=== PATIENT | male | born 1960 | race Caucasian/White ===

== ENCOUNTER 2017-10-04 06:41 | Emergency (ER) | payer OTHER ==
[2017-10-04 07:13] LABS: Lavender RECEIVED; Red RECEIVED
[2017-10-04 07:14] LABS: #Eosinphils 0.3 thou/uL (0.0-0.7); #Lymphocytes 2.1 thou/uL (1.20-3.40); #Monocytes 1.1 thou/uL (0.11-0.59); #Neutrophils 10.1 thou/uL (1.40-6.50); %Basophils 0.3 % (0.0-1.0); %Eosinophils 2.3 % (0.0-10.0); %Lymphocytes 15.2 % (21.0-51.0); %Monocytes 7.8 % (0.0-10.0); %Neutrophils 74.3 % (42.0-75.0); Hemoglobin 14.9 g/dL (14.0-18.0); Mean Corpuscular Hemoglobin 36.2 pg (27.0-31.0); Mean Platelet Volume 6.9 fL (7.4-10.4); Platelet Count 312 thou/uL (130-400); RBC Distribution Width 11.7 % (11.5-14.5); Red Blood Cell (RBC) Count 4.12 mill/uL (4.70-6.10); White Blood Cell (WBC) Count 13.7 thou/uL (4.8-10.8)
[2017-10-04 07:32] LABS: Acetaminophen Less than 6.0 mcg/mL (10.0-30.0); Alcohol Less than 10 mg/dL (Less than 10); Salicylate Less than 8.0 mg/dL (15.0-30.0)
[2017-10-04 07:34] LABS: ALT (SGPT) 16 U/L (8-55); AST (SGOT) 14 U/L (5-34); Albumin 4.1 g/dL (3.5-5.0); Alkaline Phosphatase 79 U/L (40-150); Anion Gap 11 mmol/L (10-20); BUN (Urea Nitrogen) 16 mg/dL (8.4-25.7); Bilirubin, Total 0.3 mg/dL (0.2-1.2); Calc. Creatinine Clearance 0 mL/min (70-130); Calcium 9.6 mg/dL (7.8-10.44); Carbon Dioxide 26 mmol/L (22-29); Chloride 106 mmol/L (98-107); Estimated GFR-MDRD Greater than 90; Globulin 2.4 g/dL (2.4-3.5); Glucose 110 mg/dL (70-105); Protein, Total 6.5 g/dL (6.0-8.3); Sodium 139 mmol/L (136-145)
[2017-10-04 07:36] LABS: CKMB 1.9 ng/mL (0-6.6); Troponin I Less than 0.010 ng/mL (< 0.028)
--- NOTE | 2017-12-03 16:12 | EKG ---
Test Reason : Blood Pressure : / mmHG Vent. Rate : 072 BPM Atrial Rate : 072 BPM P-R Int : 182 ms QRS Dur : 102 ms QT Int : 376 ms P-R-T Axes : 071 -51 036 degrees QTc Int : 411 ms Normal sinus rhythm with sinus arrhythmia Pulmonary disease pattern Left anterior fascicular block Abnormal ECG Confirmed by TORREY MOSHER, STANLEY ([id number]), web editor JONATHAN GUTIERREZ ([id number]) on 12/03/2017 4:11:28 PM Referred By: Confirmed By:STANLEY HIRSCH MD
== END 2017-10-04 08:04 | disposition home or self-care (01) ==
LOC: ERS 06:41
DX: G40.409 Other generalized epilepsy and epileptic syndromes, not intractable, without status epilepticus (principal); E78.5 Hyperlipidemia, unspecified; F17.210 Nicotine dependence, cigarettes, uncomplicated; Z79.899 Other long term (current) drug therapy
CPT/HCPCS: 36415; 80053; 80307; 82553; 84484; 85025; 93005

== ENCOUNTER 2018-06-17 07:43 | Emergency (ER) | payer OTHER ==
[2018-06-17 08:13] LABS: #Basophils 0.1 thou/uL (0.0-0.2); #Eosinphils 0.3 thou/uL (0.0-0.7); #Lymphocytes 1.5 thou/uL (1.20-3.40); #Monocytes 0.7 thou/uL (0.11-0.59); #Neutrophils 6.9 thou/uL (1.40-6.50); %Basophils 0.6 % (0.0-1.0); %Eosinophils 3.7 % (0.0-10.0); %Lymphocytes 15.4 % (21.0-51.0); %Monocytes 6.9 % (0.0-10.0); %Neutrophils 73.4 % (42.0-75.0); Hemoglobin 14.5 g/dL (14.0-18.0); Mean Corpuscular HGB CONC 33.2 g/dL (32.0-36.0); Mean Corpuscular Hemoglobin 33.8 pg (27.0-31.0); Mean Platelet Volume 7.2 fL (7.4-10.4); Platelet Count 318 thou/uL (130-400); RBC Distribution Width 11.9 % (11.5-14.5); Red Blood Cell (RBC) Count 4.29 mill/uL (4.70-6.10); White Blood Cell (WBC) Count 9.5 thou/uL (4.8-10.8)
--- NOTE | 2018-06-17 08:17 | CT ---
NONCONTRAST CT HEAD: DATE: 06/17/2018. HISTORY: Altered mental status. The patient presents with a seizure episode this morning. Tonic-clonic grand mal seizure lasting 7-8 minutes. COMPARISON: 06/19/2016. FINDINGS: There is a stable area of encephalomalacia present within the inferior aspect of the right anterior f rontal lobe. There is no evidence of an acute cortical infarction, hemorrhage, mass effect, or midli ne shift. Mild cerebral and cerebellar volume loss is present similar to the prior exam. Ventricula r system is normal in size, shape, and position for the degree of sulcal atrophy. Visualized paranas al sinuses and mastoid air cells are clear. Calvarial structures are intact. The large mucous reten tion cyst right maxillary antrum on the prior study was not imaged on today's exam. IMPRESSION: 1. No acute intracranial abnormality is demonstrated. 2. Stable encephalomalacia anterior inferior right frontal lobe. 3. Mild cerebral and cerebellar volume loss. POS: DORIAN
[2018-06-17 08:32] LABS: ALT (SGPT) 24 U/L (8-55); AST (SGOT) 23 U/L (5-34); Alkaline Phosphatase 86 U/L (40-150); Anion Gap 11 mmol/L (10-20); BUN (Urea Nitrogen) 18 mg/dL (8.4-25.7); Bilirubin, Total 0.9 mg/dL (0.2-1.2); Calc. Creatinine Clearance 0 mL/min (70-130); Calcium 9.1 mg/dL (7.8-10.44); Carbon Dioxide 27 mmol/L (22-29); Chloride 103 mmol/L (98-107); Estimated GFR-MDRD 83; Globulin 2.5 g/dL (2.4-3.5); Glucose 123 mg/dL (70-105); Potassium 4.4 mmol/L (3.5-5.1); Protein, Total 6.5 g/dL (6.0-8.3); Sodium 137 mmol/L (136-145)
[2018-06-17 09:27] LABS: Bilirubin Negative (Negative); Blood, Urine Small (Negative); Clarity CLEAR (Clear); Glucose, Urine (Dipstick) Negative (Negative); Leukocyte Negative (Negative); Nitrite Negative (Negative); Protein, Urine (Dipstick) 100 mg/dL (Neg-Trace); Specific Gravity, Urine 1.018 (1.002-1.036); Urobilinogen 0.2 mg/dL (0.2-1.0); pH, Urine 5.5 (5.0-9.0)
[2018-06-17 09:29] LABS: Bacteria/HPF None Seen HPF (None Seen); Hyaline Casts/LPF 4-6 HYALINE CAST LPF (0-3 Hyaline); Pathc Cast-AUWi Flag 0.29 (0-2.49); Squamous Epithelial 0-3 HPF (0-3); WBC/HPF 0-3 HPF (0-3)
== END 2018-06-17 09:23 | disposition home or self-care (01) ==
LOC: ERS 07:43
DX: G40.909 Epilepsy, unspecified, not intractable, without status epilepticus (principal); E78.5 Hyperlipidemia, unspecified; F17.210 Nicotine dependence, cigarettes, uncomplicated; Z79.899 Other long term (current) drug therapy
CPT/HCPCS: 36415; 70450; 80053; 81003; 81015; 85025

== ENCOUNTER 2018-06-17 10:17 | Observation (INO) | payer OTHER ==
[2018-06-17 08:04] LABS: Lavender RECEIVED; Red RECEIVED
[2018-06-17] MEDS ORDERED: Lorazepam 2 MG/ML VIAL ONE (10:40)
[2018-06-17] MEDS ORDERED: Lacosamide 50 mg Tablet PO SCH ×2 (10:45→21:00)
[2018-06-17] MEDS ORDERED: levETIRAcetam In NaCl (Iso-Os) 1,000 MG in Premix Bag 1 BAG IVPB ONE (14:30)
[2018-06-17 16:07] VITALS: BMI 28.0
[2018-06-17] MEDS ORDERED: Lorazepam 2 MG/ML VIAL SLOW IVP PRN (16:21)
[2018-06-17] MEDS ORDERED: Sodium Chloride 0.9% 1,000 ML IV SCH (16:21)
[2018-06-17] MEDS ORDERED: Ondansetron ODT 4 MG TAB SL PRN (16:21)
[2018-06-17] MEDS ORDERED: Ondansetron PF 4 MG/2 ML Vial IVP PRN (16:21)
[2018-06-17] MEDS ORDERED: Acetaminophen 325 MG TAB PO PRN (17:16)
--- NOTE | 2018-06-17 17:58 | HP ---
CHIEF COMPLAINT: Breakthrough seizures. HISTORY OF PRESENT ILLNESS: Mr. Devries is a very pleasant 58-year-old man who presented to the ED initially this morning after having a breakthrough seizure. He has a known history of seizure disorders. The patient states his first seizure was early hours this morning. He went with his to walk their dog. They went back to bed and 30 min after falling asleep had a seizure lasting less than 10 minutes. He vomited x 1 and had loss of bladder control. No loss of bowel control. This was his first seizure since October 2017. He is on Vimpat 150 mg b.i.d. and reports being compliant with medications. Denies any changes in his medication, except for coming off of Prozac approximately 2 months ago. His states his mood improved quickly as did his energy. He underwent investigations including laboratory studies, which were unremarkable. He had a CT of the brain showing no acute intracranial abnormality. Stable encephalomalacia in the anterior inferior right frontal lobe was noted. Mild cerebral and cerebellar volume loss present. The patient's case had been discussed with Neuro and he was deemed safe for discharge home as he had no further seizure episodes since arriving to the ED. He was given a prescription to for Keppra and Vimpat was increased to 200 mg PO BID. They were on their way to the pharmacy when they stopped to have breakfast and he experienced another seizure, lasting 5 min with no subsequent injuries. He came immediately back to the ED. It was reviewed again and due to concerns by his taking him home, he is being admitted for observation. REVIEW OF SYSTEMS: At this time, he feels drained and has no recollection of events. Denies having any headaches or dizziness. Denies having any preceding chest pain or shortness of breath. Denies having any warning signs or symptoms prior to the seizures. Denies having any issues with his appetite. No nausea. He did experience vomiting and loss of bladder control with the first seizure today, but prior to that had absolutely no complaints of nausea or vomiting. His bowel movements have been normal. He denies having any urinary complaints. He has been compliant with his medications and denies starting any new medications. He has not been unwell with any fevers, chills, or sweats. Denies any alcohol use. No drug use. All other review of systems are negative. The patient denies any vision disturbances. Denies any speech changes. PAST MEDICAL HISTORY: 1. Traumatic brain injury 1976. 2. History of hyperlipidemia. 3. Seizure disorder. PAST SURGICAL HISTORY: Appendectomy. SOCIAL HISTORY: The patient smokes 5 to 6 cigarettes a day. He drinks socially , but has not had any alcohol as of recently. No drug use. He lives with his . ALLERGIES: NO KNOWN DRUG ALLERGIES. CURRENT MEDICATIONS: 1. Fluoxetine 20 mg once daily- DISCONTINUED 2 months ago. 2. Vimpat 150 mg b.i.d. 3. Atorvastatin 40 mg once daily. PHYSICAL EXAMINATION: VITAL SIGNS: Temperature 98.6, heart rate 76, respirations 12, O2 saturation 97 % on room air, and blood pressure 114/63. HEENT: Normocephalic and atraumatic. Pupils are equal, round, reactive to light. Sclerae without icterus. Oropharynx is clear. NECK: Supple without lymphadenopathy. LUNGS: Clear to auscultation bilaterally without any wheezes, rales, or rhonchi. CARDIAC: Regular rate and rhythm without audible murmurs, rubs, or gallops. ABDOMEN: Soft, nontender, nondistended. Normoactive bowel sounds present. EXTREMITIES: No clubbing, cyanosis, or edema. NEUROLOGIC: Alert and oriented x3. Power 5/5 in all limbs. Normal sensation. Normal speech. No vision disturbances. SKIN: Without rash or jaundice. IMPRESSION AND PLAN: 1. Seizure disorder with breakthrough seizures. The patient has been given a loading dose of Keppra in the ED. Vimpat has been increased to 200 mg p.o. b.i.d. as per neuro recommendations. We will continue to monitor. If further seizure episode, consider Neurology consult. 2. Diet. Heart healthy diet. 3. Gastrointestinal prophylaxis. 4. Venous thromboembolism prophylaxis. 5. Continue home medications. The patient is seen by Dr. Lal, who agrees with the plan of care as described above. Job ID: [id number] [facility]
[2018-06-17 18:34] LABS: Bilirubin Negative (Negative); Blood, Urine Negative (Negative); Clarity CLEAR (Clear); Glucose, Urine (Dipstick) Negative (Negative); Leukocyte Negative (Negative); Nitrite Negative (Negative); Protein, Urine (Dipstick) Negative (Neg-Trace); Specific Gravity, Urine 1.013 (1.002-1.036); pH, Urine 7.5 (5.0-9.0)
[2018-06-17 18:36] LABS: Bacteria/HPF None Seen HPF (None Seen); Hyaline Casts/LPF 0-3 HYALINE CAST LPF (0-3 Hyaline); Squamous Epithelial None Seen HPF (0-3); WBC/HPF None Seen HPF (0-3)
[2018-06-17 18:48] LABS: Amphetamine Not Detected (NotDetected); Barbiturates Screen Not Detected (NotDetected); Benzodiazepine Screen Detected (NotDetected); Cocaine Metabolite Screen Not Detected (NotDetected); Medtox Control Line Valid? VALID (VALID); Medtox Reader # READER 1; Methadone Not Detected (NotDetected); Methamphetamine Not Detected (NotDetected); Opiate Screen Not Detected (NotDetected); Oxycodone Screen Not Detected (NotDetected); Phencyclidine (PCP) Not Detected (NotDetected); THC/Cannabinoid Screen Detected (NotDetected); Tricyclic Screen Not Detected (NotDetected)
[2018-06-17 18:56] LABS: ALT (SGPT) 25 U/L (8-55); AST (SGOT) 24 U/L (5-34); Alkaline Phosphatase 83 U/L (40-150); Bilirubin, Direct 0.3 mg/dL (0.1-0.3); Bilirubin, Total 0.9 mg/dL (0.2-1.2); Calcium 9.2 mg/dL (7.8-10.44); Magnesium 2.3 mg/dL (1.6-2.6); Protein, Total 6.5 g/dL (6.0-8.3)
[2018-06-17] MEDS: Famotidine 20 MG TAB PO SCH (20:59)
[2018-06-17] MEDS ORDERED: Donepezil HCl 5 MG TAB PO SCH (21:00)
[2018-06-17] MEDS ORDERED: levETIRAcetam 500 MG TAB PO SCH (21:00)
[2018-06-17] MEDS ORDERED: Atorvastatin Calcium 40 MG TAB PO SCH (21:00)
[2018-06-18 05:12] LABS: #Basophils 0.1 thou/uL (0.0-0.2); #Eosinphils 0.3 thou/uL (0.0-0.7); #Lymphocytes 3.1 thou/uL (1.20-3.40); #Monocytes 1.2 thou/uL (0.11-0.59); #Neutrophils 5.8 thou/uL (1.40-6.50); %Basophils 0.9 % (0.0-1.0); %Lymphocytes 29.2 % (21.0-51.0); %Monocytes 11.3 % (0.0-10.0); %Neutrophils 55.7 % (42.0-75.0); Mean Corpuscular HGB CONC 33.6 g/dL (32.0-36.0); Mean Corpuscular Hemoglobin 34.2 pg (27.0-31.0); Mean Platelet Volume 7.4 fL (7.4-10.4); Platelet Count 289 thou/uL (130-400); RBC Distribution Width 11.9 % (11.5-14.5); Red Blood Cell (RBC) Count 3.81 mill/uL (4.70-6.10); White Blood Cell (WBC) Count 10.4 thou/uL (4.8-10.8)
[2018-06-18 05:29] LABS: ALT (SGPT) 21 U/L (8-55); AST (SGOT) 17 U/L (5-34); Albumin 3.5 g/dL (3.5-5.0); Alkaline Phosphatase 71 U/L (40-150); Anion Gap 10 mmol/L (10-20); BUN (Urea Nitrogen) 14 mg/dL (8.4-25.7); Bilirubin, Total 1.1 mg/dL (0.2-1.2); Calc. Creatinine Clearance 119 mL/min (70-130); Calcium 8.6 mg/dL (7.8-10.44); Carbon Dioxide 25 mmol/L (22-29); Chloride 108 mmol/L (98-107); Estimated GFR-MDRD Greater than 90; Globulin 2.2 g/dL (2.4-3.5); Glucose 98 mg/dL (70-105); Potassium 3.8 mmol/L (3.5-5.1); Protein, Total 5.7 g/dL (6.0-8.3); Sodium 139 mmol/L (136-145)
[2018-06-18] MEDS ORDERED: Lorazepam 2 MG/ML VIAL SLOW IVP PRN (07:19)
[2018-06-18 07:41] VITALS: BP 125/76; TEMP 99.2
[2018-06-18] MEDS: Famotidine 20 MG TAB PO SCH (08:03)
[2018-06-18] MEDS ORDERED: Lacosamide 50 mg Tablet PO SCH (09:00)
[2018-06-18] MEDS ORDERED: Folic Acid 1 MG TAB PO SCH (09:00)
[2018-06-18] MEDS ORDERED: levETIRAcetam 500 MG TAB PO SCH (09:00)
--- NOTE | 2018-06-19 12:22 | DIS ---
DATE OF ADMISSION: 06/17/2018 DATE OF DISCHARGE: 06/18/2018 DISCHARGE DIAGNOSIS: Breakthrough seizures. CONSULTING PHYSICIANS: None. HOSPITAL COURSE: Mr. Juan is a very pleasant 58-year-old man, who was admitted from the ED after re-presenting with a second breakthrough seizure. He had experienced his first seizure yesterday at 6:00 a.m. while asleep, lasting less than 10 minutes and witnessed by his , who reported loss of bladder control as well as one episode of vomiting once he came to. She brought him to the ED, where he underwent a CT head, which was unremarkable for any acute changes. The patient underwent also unremarkable. This case was discussed with Neuro, who advised increasing his Vimpat to 200 mg b.i.d. and to resume Keppra. The patient had been on Keppra previously, but was taken off it as it had been sometime since his last seizure. His last seizure was in October 2017. He reports having no new medications or any recent illnesses. Of note, the states he did discontinue Prozac 2 months ago and had notable improvement with his mood and energy. The patient was discharged to home. However, shortly after when they stopped to have breakfast at [employer], he experienced another seizure lasting 5 minutes. He had no subsequent injuries. He came back to the ED immediately after. The patient was cleared for discharge home after a loading dose of Keppra. The , however, did not feel comfortable taking him home, therefore, he was admitted for further observation. The patient did very well overnight and has had no further seizure-like activity since being admitted. He has no recollection of having seizure or of being in the ED yesterday. The patient states he often does experience retrograde amnesia after his seizures. He reports feeling himself. Denies having any headaches or dizziness. He has been eating and drinking without any difficulties. Denies having any nausea or vomiting. No urinary symptoms. He has been afebrile without any cough. No chest pain, palpitations, or shortness of breath. All other review of systems are negative. The patient has been deemed stable for discharge home with plans to follow up with his neurologist at the [facility], which is scheduled for June 27, 2018. REVIEW OF SYSTEMS: All other review of systems apart from those mentioned above in the HPI are negative. PHYSICAL EXAMINATION: GENERAL: The patient appears well developed, well nourished, in no acute distress. SKIN: Normal warm and dry. VITAL SIGNS: Temperature 99.2, pulse 61, respirations 16, O2 saturation 94% on room air, and blood pressure 125/76. HEENT: Normocephalic and atraumatic. Pupils are equal, round, and reactive to light. Sclerae are without icterus. Oropharynx is clear. NECK: Supple without lymphadenopathy. LUNGS: Clear to auscultation bilaterally. CARDIAC: Regular rhythm. ABDOMEN: Soft, nontender, and nondistended. Normoactive bowel sounds present. EXTREMITIES: No clubbing, cyanosis, or edema. NEUROLOGIC: Alert and oriented x3. Power 5/5 in all limbs. Sensation normal. Speech normal. Facial movements also normal. No vision disturbances. LABORATORY DATA: White blood count 10.4, hemoglobin 13, hematocrit 38.7, and platelets 289. Sodium 139, potassium 3.8, BUN 14, creatinine 0.83, GFR greater than 90, calcium 8.6, magnesium 2.3. LFTs unremarkable. Urinalysis unremarkable. Urine tox screen positive for benzodiazepines and cannabinoids. IMAGING STUDIES: CT brain done on 06/17/2018. No acute intracranial abnormality demonstrated. Stable encephalomalacia in anterior inferior right frontal lobe. Mild cerebral and cerebellar volume loss. DISCHARGE MEDICATIONS: 1. Prescription provided for Keppra 500 mg p.o. b.i.d. as per Neuro. 2. Vimpat increased from 150 mg p.o. b.i.d. to 200 mg p.o. b.i.d., as per Neuro. Prescription provided yesterday by ED physician, which the states she does have and will fill. 3. Prescription provided yesterday by ED physician for Diastat mg per rectum p.r.n. for seizures. will have the prescription filled. 4. The patient will otherwise resume all other home medications. CONDITION AT DISCHARGE: Stable. ACTIVITY: As tolerated. The patient is aware of driving restrictions and has not driven for quite sometime. DIET: Heart healthy diet. FOLLOWUP: The patient will follow up with his neurologist on June 27, 2018 as scheduled. DISPOSITION: The patient cleared for discharge home today on 06/18/2018. Job ID: [id number]
== END 2018-06-18 10:24 | disposition home or self-care (01) ==
LOC: ERS 10:17 → 2SE 15:48
PROVIDERS: ADMIT Internal Medicine; ATTEND Internal Medicine
DX: G40.909 Epilepsy, unspecified, not intractable, without status epilepticus (principal); E78.5 Hyperlipidemia, unspecified; F17.210 Nicotine dependence, cigarettes, uncomplicated; Z90.49 Acquired absence of other specified parts of digestive tract; Z87.820 Personal history of traumatic brain injury; Z79.899 Other long term (current) drug therapy
CPT/HCPCS: 36415; 70450; 80053; 80306; 81003; 81015; 83735; 85025; 90471; 90732; 96360; 96361; 96365; 96375; G0009; G0378; J1953; J2060

== ENCOUNTER 2019-03-16 20:26 | Emergency (ER) | payer OTHER ==
[2019-03-16] MEDS ORDERED: HYDROcodone/Acetaminophen 10/325 mg Tablet ONE (20:57)
[2019-03-16 21:46] LABS: #Basophils 0.1 thou/uL (0.0-0.2); #Eosinphils 0.5 thou/uL (0.0-0.7); #Lymphocytes 3.7 thou/uL (1.20-3.40); #Monocytes 1.2 thou/uL (0.11-0.59); #Neutrophils 6.8 thou/uL (1.40-6.50); %Basophils 0.7 % (0.0-1.0); %Eosinophils 4.2 % (0.0-10.0); %Lymphocytes 30.4 % (21.0-51.0); %Monocytes 9.6 % (0.0-10.0); %Neutrophils 55.2 % (42.0-75.0); Mean Corpuscular HGB CONC 34.2 g/dL (32.0-36.0); Mean Corpuscular Volume 99.2 fL (78.0-98.0); Mean Platelet Volume 6.9 fL (7.4-10.4); Platelet Count 284 thou/uL (130-400); RBC Distribution Width 11.4 % (11.5-14.5); Red Blood Cell (RBC) Count 3.53 mill/uL (4.70-6.10); White Blood Cell (WBC) Count 12.3 thou/uL (4.8-10.8)
[2019-03-16 22:07] LABS: ALT (SGPT) 14 U/L (8-55); AST (SGOT) 14 U/L (5-34); Albumin 3.8 g/dL (3.4-4.8); Alkaline Phosphatase 85 U/L (40-110); Anion Gap 10 mmol/L (10-20); BUN (Urea Nitrogen) 24 mg/dL (8.4-25.7); Bilirubin, Total 0.3 mg/dL (0.2-1.2); Calc. Creatinine Clearance 0 mL/min (70-130); Calcium 9.4 mg/dL (7.8-10.44); Carbon Dioxide 28 mmol/L (23-31); Chloride 103 mmol/L (98-107); Estimated GFR-MDRD Greater than 90; Globulin 2.4 g/dL (2.4-3.5); Glucose 109 mg/dL (80-115); Potassium 3.7 mmol/L (3.5-5.1); Protein, Total 6.2 g/dL (5.8-8.1); Sodium 137 mmol/L (136-145)
--- NOTE | 2019-03-16 22:34 | CT ---
CT Facial Bones W Con HISTORY: Right cheek swelling onset today. History recent temporary crown placement. COMPARISON: CT of brain performed 06/17/2018. FINDINGS: The visualized brain parenchyma shows atrophy. Orbits are unremarkable. The right maxillary sinus is now completely opacified and there is some right-sided ethmoid air cell mucosal disease. Directly anterior to the right maxillary sinus along the anterior wall there is a small fluid density collection I do not see any underlying definitive dental disease in this area. The changes could be secondary to the sinus disease. The parotid and submandibular glands are unremarkable. IMPRESSION: Development of complete opacification the right maxillary sinus also with mild right-side d anterior ethmoid air cell mucosal disease. A small low-attenuation collection adjacent to the anterior wall of the right maxillary sinus is seen, I do not see obvious dental disease in this regio n, these changes could be secondary to the sinus disease.
[2019-03-16] MEDS ORDERED: Amoxicillin/Potassium Clav 875 MG TAB ONE (22:45)
== END 2019-03-16 22:55 | disposition home or self-care (01) ==
LOC: ERS 20:26
DX: J32.9 Chronic sinusitis, unspecified (principal); K08.89 Other specified disorders of teeth and supporting structures; E78.5 Hyperlipidemia, unspecified; E78.00 Pure hypercholesterolemia, unspecified; F17.210 Nicotine dependence, cigarettes, uncomplicated; Z79.899 Other long term (current) drug therapy; Z71.6 Tobacco abuse counseling
CPT/HCPCS: 36415; 70487; 80053; 85025; 99406

== ENCOUNTER 2020-10-13 13:08 | Emergency (ER) | payer OTHER ==
[2020-10-13] MEDS ORDERED: levETIRAcetam in NS 200 ML ONE (13:28)
[2020-10-13 13:43] LABS: #Eosinphils 0.1 thou/uL (0.0-0.7); #Lymphocytes 1.5 thou/uL (1.20-3.40); #Monocytes 0.6 thou/uL (0.11-0.59); #Neutrophils 7.1 thou/uL (1.40-6.50); %Basophils 0.5 % (0.0-1.0); %Eosinophils 1.6 % (0.0-10.0); %Lymphocytes 16.2 % (21.0-51.0); %Monocytes 6.8 % (0.0-10.0); Hemoglobin 13.9 g/dL (14.0-18.0); Mean Corpuscular HGB CONC 31.7 g/dL (32.0-36.0); Mean Corpuscular Hemoglobin 32.4 pg (27.0-31.0); Mean Platelet Volume 7.7 fL (7.4-10.4); Platelet Count 298 thou/uL (130-400); RBC Distribution Width 11.7 % (11.5-14.5); Red Blood Cell (RBC) Count 4.29 mill/uL (4.70-6.10); White Blood Cell (WBC) Count 9.4 thou/uL (4.8-10.8)
[2020-10-13 14:00] LABS: ALT (SGPT) 17 U/L (8-55); AST (SGOT) 19 U/L (5-34); Albumin 4.4 g/dL (3.4-4.8); Alkaline Phosphatase 81 U/L (40-110); Anion Gap 20 mmol/L (10-20); BUN (Urea Nitrogen) 15 mg/dL (8.4-25.7); Bilirubin, Total 0.5 mg/dL (0.2-1.2); CK (CPK) 223 U/L (30-200); Calc. Creatinine Clearance 0 mL/min (70-130); Calcium 9.5 mg/dL (7.8-10.44); Carbon Dioxide 20 mmol/L (23-31); Chloride 106 mmol/L (98-107); Globulin 2.8 g/dL (2.4-3.5); Glucose 166 mg/dL (80-115); Protein, Total 7.2 g/dL (5.8-8.1); Sodium 142 mmol/L (136-145)
[2020-10-13 20:15] LABS: SARS-CoV-2 NAA Rapid Test Not Detected (NotDetected)
[2020-10-13] MEDS ORDERED: Fosphenytoin Sodium 500 mg/10 ml Vial ONE (23:03)
== END 2020-10-13 23:20 | disposition short-term general hospital (02) ==
LOC: ERS 13:08
DX: R56.9 Unspecified convulsions (principal); E78.5 Hyperlipidemia, unspecified; F17.210 Nicotine dependence, cigarettes, uncomplicated; Z79.899 Other long term (current) drug therapy
CPT/HCPCS: 36415; 70450; 71045; 80053; 80177; 82550; 84484; 85025; 93005; 96365; 96375; J1953; Q2009; U0002

== ENCOUNTER 2022-06-08 09:38 | Emergency (ER) | payer OTHER ==
[2022-06-08] MEDS ORDERED: levETIRAcetam 500 MG/5 ML VIAL ONE ×2 (10:03→11:31)
[2022-06-08 10:31] LABS: #Eosinphils 0.3 thou/uL (0.0-0.7); #Lymphocytes 1.5 thou/uL (1.20-3.40); #Monocytes 1.1 thou/uL (0.11-0.59); #Neutrophils 11.9 thou/uL (1.40-6.50); %Basophils 0.3 % (0.0-1.0); %Lymphocytes 10.3 % (21.0-51.0); %Monocytes 7.1 % (0.0-10.0); %Neutrophils 80.3 % (42.0-75.0); Hemoglobin 14.7 g/dL (14.0-18.0); Mean Corpuscular HGB CONC 32.6 g/dL (32.0-36.0); Mean Corpuscular Hemoglobin 33.9 pg (27.0-31.0); Mean Platelet Volume 7.2 fL (7.4-10.4); Platelet Count 308 10x3/uL (130-400); RBC Distribution Width 11.4 % (11.5-14.5); Red Blood Cell (RBC) Count 4.34 mill/uL (4.70-6.10); White Blood Cell (WBC) Count 14.8 10x3/uL (4.8-10.8)
[2022-06-08 10:59] LABS: ALT (SGPT) 21 U/L (8-55); AST (SGOT) 17 U/L (5-34); Alkaline Phosphatase 94 U/L (40-110); Anion Gap 11 mmol/L (10-20); BUN (Urea Nitrogen) 9 mg/dL (8.4-25.7); Bilirubin, Total 0.4 mg/dL (0.2-1.2); Calc. Creatinine Clearance 0 mL/min (70-130); Calcium 8.6 mg/dL (7.8-10.44); Carbon Dioxide 26 mmol/L (23-31); Chloride 103 mmol/L (98-107); Estimated GFR 100; Globulin 2.5 g/dL (2.4-3.5); Glucose 116 mg/dL (80-115); Potassium 4.3 mmol/L (3.5-5.1); Protein, Total 6.5 g/dL (5.8-8.1); Sodium 136 mmol/L (136-145)
== END 2022-06-08 12:08 | disposition home or self-care (01) ==
LOC: ERS 09:38
DX: R56.9 Unspecified convulsions (principal); E78.00 Pure hypercholesterolemia, unspecified; F17.210 Nicotine dependence, cigarettes, uncomplicated
CPT/HCPCS: 36415; 80053; 80164; 80177; 84146; 85025; J1953

== ENCOUNTER 2022-06-08 15:41 | Inpatient (IN) | payer OTHER ==
[2022-06-08] MEDS ORDERED: Iopamidol-370 76% 500 ML 1 ML ONE (16:09)
[2022-06-08 16:31] LABS: #Eosinphils 0.1 thou/uL (0.0-0.7); #Neutrophils 12.8 thou/uL (1.40-6.50); %Eosinophils 0.5 % (0.0-10.0); Mean Corpuscular HGB CONC 33.5 g/dL (32.0-36.0); RBC Distribution Width 11.3 % (11.5-14.5)
[2022-06-08 16:42] LABS: #Lymphocytes 1.4 thou/uL (1.20-3.40); #Monocytes 0.6 thou/uL (0.11-0.59); %Lymphocytes 9.3 % (21.0-51.0); %Neutrophils 86.1 % (42.0-75.0); Hemoglobin 13.9 g/dL (14.0-18.0); Mean Corpuscular Hemoglobin 34.1 pg (27.0-31.0); Mean Platelet Volume 7.5 fL (7.4-10.4); Platelet Count 289 10x3/uL (130-400); Red Blood Cell (RBC) Count 4.07 mill/uL (4.70-6.10); White Blood Cell (WBC) Count 14.9 10x3/uL (4.8-10.8)
[2022-06-08 16:48] LABS: PTT 32.3 sec (22.9-36.1); Prothrombin Time 13.4 sec (12.0-14.7)
[2022-06-08 17:00] LABS: ALT (SGPT) 18 U/L (8-55); AST (SGOT) 15 U/L (5-34); Albumin 3.8 g/dL (3.4-4.8); Alkaline Phosphatase 93 U/L (40-110); Anion Gap 9 mmol/L (10-20); BUN (Urea Nitrogen) 11 mg/dL (8.4-25.7); Bilirubin, Total 0.6 mg/dL (0.2-1.2); Calc. Creatinine Clearance 0 mL/min (70-130); Calcium 8.8 mg/dL (7.8-10.44); Carbon Dioxide 25 mmol/L (23-31); Chloride 104 mmol/L (98-107); Estimated GFR 102; Globulin 2.3 g/dL (2.4-3.5); Glucose 129 mg/dL (80-115); Lipase 125 U/L (8-78); Magnesium 1.7 mg/dL (1.6-2.6); Potassium 3.8 mmol/L (3.5-5.1); Protein, Total 6.1 g/dL (5.8-8.1); Sodium 134 mmol/L (136-145)
[2022-06-08 17:07] LABS: Bacteria/HPF None Seen HPF (None Seen); Bilirubin Negative (Negative); Blood, Urine Trace (Negative); Clarity Clear (Clear); Glucose, Urine (Dipstick) Normal (Negative); Ketone, Urine Negative (Negative); Leukocyte Negative Leu/uL (Negative); Nitrite Negative (Negative); Protein, Urine (Dipstick) 100 mg/dL (Neg-Trace); Specific Gravity, Urine 1.019 (1.002-1.036); Squamous Epithelial 0-3 HPF (0-3); Urobilinogen Normal mg/dL (Less than 2); WBC/HPF 0-3 HPF (0-3); pH, Urine 6.5 (5.0-9.0)
[2022-06-08] MEDS ORDERED: Ondansetron ODT 4 MG TAB PO PRN (18:20)
[2022-06-08] MEDS ORDERED: Acetaminophen 325 MG TAB PO PRN (18:20)
[2022-06-08] MEDS ORDERED: Lorazepam 2 MG/ML VIAL SLOW IVP PRN (18:20)
[2022-06-08] MEDS ORDERED: hydrALAZINE 20 MG/ML VIAL SLOW IVP PRN (18:20)
[2022-06-08] MEDS ORDERED: Ondansetron PF 4 MG/2 ML Vial IVP PRN (18:20)
[2022-06-08] MEDS ORDERED: Nicotine 21 MG PATCH TD PRN (18:20)
[2022-06-08] MEDS ORDERED: Aspirin Chewable 81 MG TAB ONE (18:24)
[2022-06-08 18:40] LABS: SARS-CoV-2 NAA Rapid Test Not Detected (NotDetected)
[2022-06-08 19:00] LABS: Magnesium 1.7 mg/dL (1.6-2.6)
[2022-06-08] MEDS ORDERED: Sodium Chloride 0.9% 1,000 ML IV SCH (19:30)
[2022-06-08 20:16] LABS: Troponin I 0.065 ng/mL (< 0.028)
[2022-06-08] MEDS ORDERED: Atorvastatin Calcium 40 MG TAB PO SCH (21:00)
[2022-06-08] MEDS: levETIRAcetam 500 MG TAB PO SCH (21:34)
[2022-06-08] MEDS: Lacosamide 50 mg Tablet PO SCH (21:35)
[2022-06-09 00:14] VITALS: BMI 29.9
[2022-06-09 05:27] LABS: #Eosinphils 0.2 thou/uL (0.0-0.7); #Lymphocytes 2.7 thou/uL (1.20-3.40); #Monocytes 1.2 thou/uL (0.11-0.59); #Neutrophils 6.3 thou/uL (1.40-6.50); %Basophils 0.4 % (0.0-1.0); %Eosinophils 1.5 % (0.0-10.0); %Lymphocytes 26.3 % (21.0-51.0); %Monocytes 11.6 % (0.0-10.0); %Neutrophils 60.2 % (42.0-75.0); Mean Corpuscular HGB CONC 33.2 g/dL (32.0-36.0); Mean Corpuscular Hemoglobin 34.1 pg (27.0-31.0); Mean Platelet Volume 7.4 fL (7.4-10.4); Platelet Count 283 10x3/uL (130-400); RBC Distribution Width 11.5 % (11.5-14.5); Red Blood Cell (RBC) Count 3.82 mill/uL (4.70-6.10); White Blood Cell (WBC) Count 10.4 10x3/uL (4.8-10.8)
[2022-06-09 05:48] LABS: Anion Gap 9 mmol/L (10-20); BUN (Urea Nitrogen) 10 mg/dL (8.4-25.7); Calc. Creatinine Clearance 127 mL/min (70-130); Calcium 8.4 mg/dL (7.8-10.44); Carbon Dioxide 26 mmol/L (23-31); Cardiac Risk 6.2 (Less than 4.5); Chloride 106 mmol/L (98-107); Cholesterol 218 mg/dl (< 200 Desired); Estimated GFR 101; Glucose 99 mg/dL (80-115); HDL Cholesterol 35 mg/dL (>60 Neg Risk); LDL Cholesterol, Calculated 152 mg/dL; Potassium 3.5 mmol/L (3.5-5.1); Sodium 137 mmol/L (136-145); Triglycerides 155 mg/dL (Less than 150)
[2022-06-09] MEDS: levETIRAcetam 500 MG TAB PO SCH (08:17)
[2022-06-09] MEDS: Lacosamide 50 mg Tablet PO SCH (08:18)
[2022-06-09] MEDS ORDERED: FLUoxetine HCl 20 MG CAP PO SCH (09:00)
[2022-06-09] MEDS ORDERED: Aspirin 81 mg Enteric Coated Tablet PO SCH (09:00)
[2022-06-09 15:57] VITALS: BP 122/71; TEMP 97.9
== END 2022-06-09 16:47 | disposition home or self-care (01) | DRG 101 ==
LOC: ERS 15:41 → NEURO 17:52
PROVIDERS: ADMIT Hospitalist; ATTEND Emergency Medicine
DX: G40.909 Epilepsy, unspecified, not intractable, without status epilepticus (principal); G93.49 Other encephalopathy; Z66 Do not resuscitate; Z20.822 Contact with and (suspected) exposure to COVID-19; F17.210 Nicotine dependence, cigarettes, uncomplicated; E78.00 Pure hypercholesterolemia, unspecified; D72.829 Elevated white blood cell count, unspecified; G93.89 Other specified disorders of brain; E11.9 Type 2 diabetes mellitus without complications; Z90.49 Acquired absence of other specified parts of digestive tract; Z87.820 Personal history of traumatic brain injury
CPT/HCPCS: 36415; 36416; 70450; 70496; 70498; 70551; 71045; 80048; 80053; 80061; 80164; 80177; 81003; 81015; 82553; 83690; 83735; 84146; 84443; 84484; 85025; 85610; 85730; 93005; 95712; 95819; 95957; J1953; J7050; Q9967; U0002

== ENCOUNTER 2022-08-26 23:03 | Observation (INO) | payer OTHER ==
[2022-08-26 23:50] LABS: #Basophils 0.1 thou/uL (0.0-0.2); #Eosinphils 0.1 thou/uL (0.0-0.7); #Monocytes 0.6 thou/uL (0.11-0.59); #Neutrophils 10.8 thou/uL (1.40-6.50); %Basophils 0.4 % (0.0-1.0); %Lymphocytes 14.4 % (21.0-51.0); %Monocytes 4.3 % (0.0-10.0); %Neutrophils 79.8 % (42.0-75.0); Hemoglobin 14.5 g/dL (14.0-18.0); Mean Corpuscular HGB CONC 33.3 g/dL (32.0-36.0); Mean Corpuscular Hemoglobin 34.3 pg (27.0-31.0); Mean Platelet Volume 7.1 fL (7.4-10.4); Platelet Count 328 10x3/uL (130-400); RBC Distribution Width 11.5 % (11.5-14.5); Red Blood Cell (RBC) Count 4.23 mill/uL (4.70-6.10); White Blood Cell (WBC) Count 13.5 10x3/uL (4.8-10.8)
[2022-08-27 00:15] LABS: Alcohol Less than 10 mg/dL (Less than 10); Salicylate Less than 8.0 mg/dL (15.0-30.0)
[2022-08-27 00:23] LABS: ALT (SGPT) 17 U/L (8-55); AST (SGOT) 17 U/L (5-34); Albumin 4.2 g/dL (3.4-4.8); Alkaline Phosphatase 94 U/L (40-110); BUN (Urea Nitrogen) 20 mg/dL (8.4-25.7); Bilirubin, Total 0.4 mg/dL (0.2-1.2); Calc. Creatinine Clearance 0 mL/min (70-130); Calcium 9.2 mg/dL (7.8-10.44); Carbon Dioxide 26 mmol/L (23-31); Estimated GFR 96; Globulin 2.5 g/dL (2.4-3.5); Glucose 117 mg/dL (80-115); Lipase 372 U/L (8-78); Magnesium 1.9 mg/dL (1.6-2.6); Protein, Total 6.7 g/dL (5.8-8.1)
[2022-08-27 00:35] LABS: Anion Gap 13 mmol/L (10-20); Chloride 104 mmol/L (98-107); Potassium 4.1 mmol/L (3.5-5.1); Sodium 139 mmol/L (136-145)
[2022-08-27 01:50] LABS: SARS-CoV-2 NAA Rapid Test Not Detected (NotDetected)
[2022-08-27] MEDS ORDERED: Aspirin 325 MG TAB ONE (02:16)
[2022-08-27] MEDS ORDERED: levETIRAcetam 500 MG/5 ML VIAL ONE (02:16)
[2022-08-27] MEDS ORDERED: Senokot S 8.6-50 MG TAB PO PRN (02:52)
[2022-08-27] MEDS ORDERED: Acetaminophen 325 MG TAB PO PRN (02:52)
[2022-08-27 04:15] VITALS: BMI 28.5
[2022-08-27 05:42] LABS: #Basophils 0.1 thou/uL (0.0-0.2); #Eosinphils 0.2 thou/uL (0.0-0.7); #Lymphocytes 3.3 thou/uL (1.20-3.40); #Monocytes 1.3 thou/uL (0.11-0.59); %Basophils 0.7 % (0.0-1.0); %Eosinophils 2.3 % (0.0-10.0); %Lymphocytes 30.2 % (21.0-51.0); %Monocytes 12.2 % (0.0-10.0); %Neutrophils 54.7 % (42.0-75.0); Hemoglobin 13.5 g/dL (14.0-18.0); Mean Corpuscular HGB CONC 33.3 g/dL (32.0-36.0); Mean Corpuscular Hemoglobin 34.5 pg (27.0-31.0); Mean Platelet Volume 6.9 fL (7.4-10.4); Platelet Count 323 10x3/uL (130-400); RBC Distribution Width 11.4 % (11.5-14.5); White Blood Cell (WBC) Count 10.9 10x3/uL (4.8-10.8)
[2022-08-27 06:01] LABS: ALT (SGPT) 14 U/L (8-55); AST (SGOT) 14 U/L (5-34); Albumin 3.8 g/dL (3.4-4.8); Alkaline Phosphatase 82 U/L (40-110); Anion Gap 12 mmol/L (10-20); BUN (Urea Nitrogen) 18 mg/dL (8.4-25.7); Bilirubin, Total 0.5 mg/dL (0.2-1.2); Calc. Creatinine Clearance 118 mL/min (70-130); Calcium 8.6 mg/dL (7.8-10.44); Carbon Dioxide 24 mmol/L (23-31); Cardiac Risk 5.1 (Less than 4.5); Chloride 106 mmol/L (98-107); Cholesterol 224 mg/dl (< 200 Desired); Estimated GFR 98; Globulin 2.2 g/dL (2.4-3.5); Glucose 98 mg/dL (80-115); HDL Cholesterol 44 mg/dL (>60 Neg Risk); LDL Cholesterol, Calculated 163 mg/dL; Potassium 4.1 mmol/L (3.5-5.1); Sodium 138 mmol/L (136-145); Triglycerides 83 mg/dL (Less than 150)
[2022-08-27] MEDS: Famotidine 20 MG TAB PO SCH ×2 (08:30→20:06)
[2022-08-27] MEDS: levETIRAcetam 500 MG TAB PO SCH ×2 (08:30→20:05)
[2022-08-27] MEDS: Lacosamide 50 mg Tablet PO SCH ×2 (08:30→20:05)
[2022-08-27] MEDS: Aspirin 81 mg Enteric Coated Tablet PO SCH (08:31)
[2022-08-27] MEDS: FLUoxetine HCl 20 MG CAP PO SCH (08:31)
[2022-08-27] MEDS ORDERED: FLU VACC QS2022-23(6MOS UP)/PF 60 MCG/0.5 ML SYRINGE IM ONE (09:00)
[2022-08-27] MEDS ORDERED: Ipratropium/Albuterol 3 ML NEB NEB PRN (12:40)
[2022-08-27] MEDS ORDERED: Azithromycin 500 MG in Sodium Chloride 0.9% 250 ML 250 ML IVPB SCH (12:45)
[2022-08-27 13:01] LABS: Actual Bicarbonate (HCO3v) 28 mEq/L (22-28); Base Excess 2.9 mEq/L (-2.0 to +3.0); Calcium, Ionized (venous) 1.15 mmol/L (1.16-1.32); Chloride (VBG) 107 mmol/L (98-106); Potassium (VBG) 3.87 mmol/L (3.70-5.30); Sodium 138.8 mmol/L (133-146); pH (venous) 7.42 (7.32-7.43)
[2022-08-27 13:07] LABS: Bacteria/HPF None Seen HPF (None Seen); Bilirubin Negative (Negative); Blood, Urine Trace (Negative); CAUTI Indications for Culture Alt mental st,lethar; Clarity Clear (Clear); Glucose, Urine (Dipstick) Normal (Negative); Ketone, Urine Negative (Negative); Leukocyte Negative Leu/uL (Negative); Nitrite Negative (Negative); Protein, Urine (Dipstick) 10 mg/dL (Neg-Trace); RBC/HPF 0-3 HPF (0-3); Specific Gravity, Urine 1.019 (1.002-1.036); Squamous Epithelial None Seen HPF (0-3); Urobilinogen Normal mg/dL (Less than 2); WBC/HPF 0-3 HPF (0-3); pH, Urine 6.5 (5.0-9.0)
[2022-08-27 13:09] LABS: Urine Culture Reflex No No
[2022-08-27 13:14] LABS: Amphetamine Not Detected (NotDetected); Barbiturates Screen Not Detected (NotDetected); Benzodiazepine Screen Not Detected (NotDetected); Cocaine Metabolite Screen Not Detected (NotDetected); Methadone Not Detected (NotDetected); Methamphetamine Not Detected (NotDetected); Opiate Screen Not Detected (NotDetected); Oxycodone Screen Not Detected (NotDetected); Phencyclidine (PCP) Not Detected (NotDetected); THC/Cannabinoid Screen Detected (NotDetected); Tricyclic Screen Not Detected (NotDetected)
[2022-08-27] MEDS ORDERED: cefTRIAXone\\ROCEPHIN 1 GM in Sodium Chloride 0.9% 100 ML IVPB SCH (14:00)
[2022-08-27] MEDS ORDERED: ISOVUE-370 76%-LOCM 1 ML ONE (14:43)
[2022-08-27] MEDS ORDERED: Iopamidol 370 76% 100 ML VIAL ONE (15:01)
[2022-08-27] MEDS: Atorvastatin Calcium 40 MG TAB PO SCH (20:05)
[2022-08-28 06:08] LABS: #Basophils 0.1 thou/uL (0.0-0.2); #Eosinphils 0.5 thou/uL (0.0-0.7); #Lymphocytes 3.5 thou/uL (1.20-3.40); #Monocytes 1.6 thou/uL (0.11-0.59); #Neutrophils 5.3 thou/uL (1.40-6.50); %Basophils 0.9 % (0.0-1.0); %Eosinophils 4.6 % (0.0-10.0); %Monocytes 14.3 % (0.0-10.0); %Neutrophils 48.1 % (42.0-75.0); Hemoglobin 13.9 g/dL (14.0-18.0); Mean Corpuscular HGB CONC 32.9 g/dL (32.0-36.0); Mean Platelet Volume 7.1 fL (7.4-10.4); Platelet Count 325 10x3/uL (130-400); RBC Distribution Width 11.4 % (11.5-14.5); Red Blood Cell (RBC) Count 4.09 mill/uL (4.70-6.10)
[2022-08-28 06:56] LABS: Anion Gap 13 mmol/L (10-20); BUN (Urea Nitrogen) 13 mg/dL (8.4-25.7); Calc. Creatinine Clearance 120 mL/min (70-130); Calcium 8.6 mg/dL (7.8-10.44); Carbon Dioxide 23 mmol/L (23-31); Chloride 107 mmol/L (98-107); Estimated GFR 98; Glucose 86 mg/dL (80-115); Magnesium 1.8 mg/dL (1.6-2.6); Phosphorus 2.6 mg/dL (2.3-4.7); Potassium 3.9 mmol/L (3.5-5.1); Sodium 139 mmol/L (136-145)
[2022-08-28] MEDS: Famotidine 20 MG TAB PO SCH ×2 (10:24→20:54)
[2022-08-28] MEDS: Aspirin 81 mg Enteric Coated Tablet PO SCH (10:24)
[2022-08-28] MEDS: FLUoxetine HCl 20 MG CAP PO SCH (10:25)
[2022-08-28] MEDS: levETIRAcetam 500 MG TAB PO SCH ×2 (10:25→20:54)
[2022-08-28] MEDS: Lacosamide 50 mg Tablet PO SCH ×2 (11:27→20:54)
[2022-08-28] MEDS: Atorvastatin Calcium 40 MG TAB PO SCH (20:54)
[2022-08-28] MEDS: Doxycycline 100 MG in Sodium Chloride 0.9% 100 ML IVPB SCH (20:56)
[2022-08-28] MEDS ORDERED: Doxycycline 100 MG in Syringe 0 ML IVPB SCH (21:00)
[2022-08-29 07:06] LABS: #Basophils 0.1 thou/uL (0.0-0.2); #Eosinphils 0.6 thou/uL (0.0-0.7); #Lymphocytes 3.5 thou/uL (1.20-3.40); #Monocytes 1.5 thou/uL (0.11-0.59); #Neutrophils 5.5 thou/uL (1.40-6.50); %Eosinophils 5.4 % (0.0-10.0); %Lymphocytes 31.5 % (21.0-51.0); %Monocytes 13.4 % (0.0-10.0); %Neutrophils 48.7 % (42.0-75.0); Hemoglobin 14.7 g/dL (14.0-18.0); Mean Corpuscular HGB CONC 33.4 g/dL (32.0-36.0); Mean Corpuscular Hemoglobin 34.5 pg (27.0-31.0); Mean Platelet Volume 7.1 fL (7.4-10.4); Platelet Count 297 10x3/uL (130-400); RBC Distribution Width 11.4 % (11.5-14.5); Red Blood Cell (RBC) Count 4.26 mill/uL (4.70-6.10); White Blood Cell (WBC) Count 11.2 10x3/uL (4.8-10.8)
[2022-08-29 07:26] LABS: Anion Gap 11 mmol/L (10-20); BUN (Urea Nitrogen) 16 mg/dL (8.4-25.7); Calc. Creatinine Clearance 114 mL/min (70-130); Calcium 9.1 mg/dL (7.8-10.44); Carbon Dioxide 28 mmol/L (23-31); Chloride 105 mmol/L (98-107); Estimated GFR 97; Glucose 90 mg/dL (80-115); Potassium 4.5 mmol/L (3.5-5.1); Sodium 139 mmol/L (136-145)
[2022-08-29] MEDS ORDERED: Cyanocobalamin (Vitamin B-12) 1,000 MCG TAB PO SCH (09:00)
[2022-08-29] MEDS ORDERED: Folic Acid 1 MG TAB PO SCH (09:00)
[2022-08-29] MEDS ORDERED: Sodium Chloride 0.9% 500 ML IV SCH (09:45)
[2022-08-29] MEDS: Lacosamide 50 mg Tablet PO SCH (11:27)
[2022-08-29] MEDS: Famotidine 20 MG TAB PO SCH (11:27)
[2022-08-29] MEDS: levETIRAcetam 500 MG TAB PO SCH (11:29)
[2022-08-29] MEDS: Aspirin 81 mg Enteric Coated Tablet PO SCH (11:30)
[2022-08-29] MEDS: FLUoxetine HCl 20 MG CAP PO SCH (11:31)
[2022-08-29] MEDS: Doxycycline 100 MG in Sodium Chloride 0.9% 100 ML IVPB SCH (11:32)
[2022-08-29 12:11] VITALS: BP 125/68; TEMP 97.8
== END 2022-08-29 13:25 | disposition home or self-care (01) ==
LOC: ERS 23:03 → NEURO 08-27 02:54
PROVIDERS: ADMIT Internal Medicine; ATTEND Internal Medicine
DX: R41.0 Disorientation, unspecified (principal); G40.909 Epilepsy, unspecified, not intractable, without status epilepticus; E78.00 Pure hypercholesterolemia, unspecified; F12.10 Cannabis abuse, uncomplicated; F17.210 Nicotine dependence, cigarettes, uncomplicated; I08.1 Rheumatic disorders of both mitral and tricuspid valves; Z87.820 Personal history of traumatic brain injury; Z79.899 Other long term (current) drug therapy; Z20.822 Contact with and (suspected) exposure to COVID-19
CPT/HCPCS: 36415; 70450; 70496; 70498; 70551; 71045; 74177; 76705; 80048; 80053; 80061; 80306; 80307; 82140; 82805; 83690; 83735; 83880; 84100; 84145; 84146; 84443; 84484; 85025; 87040; 93005; 93306; 93880; 95712; 95819; 95957; 96361; 96365; 96372; 96375; 96376; G0378; J0456; J1650; J1953; J3490; J7030; J7050; Q9966; Q9967; U0002

== ENCOUNTER 2023-01-14 19:25 | Observation (INO) | payer OTHER ==
[2023-01-14 20:05] LABS: #Basophils 0.1 thou/uL (0.0-0.2); #Eosinphils 0.3 thou/uL (0.0-0.7); #Monocytes 0.9 thou/uL (0.11-0.59); #Neutrophils 4.7 thou/uL (1.40-6.50); %Basophils 0.7 % (0.0-1.0); %Eosinophils 3.2 % (0.0-10.0); %Lymphocytes 28.3 % (21.0-51.0); %Monocytes 10.7 % (0.0-10.0); %Neutrophils 56.7 % (42.0-75.0); Hemoglobin 12.7 g/dL (14.0-18.0); Mean Corpuscular HGB CONC 32.6 g/dL (32.0-36.0); Mean Corpuscular Hemoglobin 32.3 pg (27.0-31.0); Mean Platelet Volume 9.7 fL (7.4-10.4); Platelet Count 286 10x3/uL (130-400); RBC Distribution Width 12.3 % (11.5-14.5); Red Blood Cell (RBC) Count 3.93 mill/uL (4.70-6.10); White Blood Cell (WBC) Count 8.3 10x3/uL (4.8-10.8)
[2023-01-14] MEDS ORDERED: levETIRAcetam 500 MG/5 ML VIAL ONE ×2 (20:05→20:10)
[2023-01-14 20:36] LABS: ALT (SGPT) 19 U/L (8-55); AST (SGOT) 17 U/L (5-34); Albumin 4.2 g/dL (3.4-4.8); Alkaline Phosphatase 77 U/L (40-110); Anion Gap 11 mmol/L (10-20); BUN (Urea Nitrogen) 14 mg/dL (8.4-25.7); Bilirubin, Total 0.3 mg/dL (0.2-1.2); Calc. Creatinine Clearance 0 mL/min (70-130); Calcium 8.9 mg/dL (7.8-10.44); Carbon Dioxide 29 mmol/L (23-31); Chloride 104 mmol/L (98-107); Estimated GFR 96; Globulin 2.4 g/dL (2.4-3.5); Glucose 116 mg/dL (80-115); Lipase 71 U/L (8-78); Magnesium 1.8 mg/dL (1.6-2.6); Potassium 3.9 mmol/L (3.5-5.1); Protein, Total 6.6 g/dL (5.8-8.1); Sodium 140 mmol/L (136-145)
[2023-01-14] MEDS ORDERED: Acetaminophen 500 MG TAB ONE (22:23)
[2023-01-14] MEDS ORDERED: Ondansetron PF 4 MG/2 ML Vial IVP PRN (23:01)
[2023-01-14] MEDS ORDERED: Acetaminophen 325 MG TAB PO PRN (23:01)
[2023-01-14] MEDS ORDERED: Nicotine 21 MG PATCH TD PRN (23:01)
[2023-01-14] MEDS ORDERED: Lorazepam 2 MG/ML VIAL SLOW IVP PRN (23:01)
[2023-01-14] MEDS ORDERED: Ondansetron ODT 4 MG TAB PO PRN (23:01)
[2023-01-14] MEDS ORDERED: Lacosamide 50 mg Tablet PO SCH (23:59)
[2023-01-14] MEDS ORDERED: Rosuvastatin 20 MG TAB PO SCH (23:59)
[2023-01-15 00:15] VITALS: BMI 30.8
[2023-01-15 05:18] LABS: #Basophils 0.1 thou/uL (0.0-0.2); #Eosinphils 0.3 thou/uL (0.0-0.7); #Monocytes 1.2 thou/uL (0.11-0.59); #Neutrophils 4.9 thou/uL (1.40-6.50); %Basophils 0.7 % (0.0-1.0); %Eosinophils 2.5 % (0.0-10.0); %Lymphocytes 34.6 % (21.0-51.0); %Monocytes 11.9 % (0.0-10.0); Hemoglobin 11.7 g/dL (14.0-18.0); Mean Corpuscular HGB CONC 32.5 g/dL (32.0-36.0); Mean Corpuscular Hemoglobin 32.4 pg (27.0-31.0); Mean Corpuscular Volume 99.7 fl (78.0-98.0); Platelet Count 272 10x3/uL (130-400); RBC Distribution Width 12.3 % (11.5-14.5); Red Blood Cell (RBC) Count 3.61 mill/uL (4.70-6.10); White Blood Cell (WBC) Count 9.8 10x3/uL (4.8-10.8)
[2023-01-15 06:07] LABS: Anion Gap 12 mmol/L (10-20); BUN (Urea Nitrogen) 12 mg/dL (8.4-25.7); Calc. Creatinine Clearance 129 mL/min (70-130); Calcium 8.6 mg/dL (7.8-10.44); Carbon Dioxide 26 mmol/L (23-31); Chloride 105 mmol/L (98-107); Estimated GFR 99; Glucose 89 mg/dL (80-115); Potassium 3.5 mmol/L (3.5-5.1); Sodium 139 mmol/L (136-145)
[2023-01-15] MEDS ORDERED: Lacosamide 50 mg Tablet PO SCH (09:00)
[2023-01-15] MEDS ORDERED: levETIRAcetam 500 MG TAB PO SCH ×2 (09:00→16:00)
[2023-01-15 12:31] VITALS: BP 132/74; TEMP 98
[2023-01-15] MEDS ORDERED: Rosuvastatin 20 MG TAB PO SCH (21:00)
== END 2023-01-15 16:00 | disposition home or self-care (01) ==
LOC: ERS 19:25 → ERHOLD 22:49 → 2NO 01-15 02:34
PROVIDERS: ADMIT Internal Medicine; ATTEND Family Medicine
DX: R41.82 Altered mental status, unspecified (principal); R47.01 Aphasia; G40.201 Localization-related (focal) (partial) symptomatic epilepsy and epileptic syndromes with complex partial seizures, not intractable, with status epilepticus; E78.5 Hyperlipidemia, unspecified; F17.210 Nicotine dependence, cigarettes, uncomplicated; F12.90 Cannabis use, unspecified, uncomplicated; Z79.82 Long term (current) use of aspirin; Z79.899 Other long term (current) drug therapy
CPT/HCPCS: 36415; 70450; 70551; 80048; 80053; 83605; 83690; 83735; 83880; 84146; 85025; 93005; 96365; G0378; J1953

== ENCOUNTER 2023-03-01 13:00 | Observation (INO) | payer OTHER ==
[~2023-03-01 13:00] MED LIST: Iopamidol-370 76% 500 ML MDV (1 ML CHARGE) ONE
[2023-03-01] MEDS ORDERED: levETIRAcetam 500 MG/5 ML VIAL ONE ×2 (14:29→14:33)
[2023-03-01 14:47] LABS: #Basophils 0.1 thou/uL (0.0-0.2); #Eosinphils 0.1 thou/uL (0.0-0.7); #Neutrophils 13.9 thou/uL (1.40-6.50); %Basophils 0.6 % (0.0-1.0); %Eosinophils 0.4 % (0.0-10.0); %Lymphocytes 6.2 % (21.0-51.0); %Monocytes 6.4 % (0.0-10.0); %Neutrophils 85.5 % (42.0-75.0); Hematocrit 41.5 % (42.0-52.0); Hemoglobin 13.8 g/dL (14.0-18.0); Mean Corpuscular HGB CONC 33.3 g/dL (32.0-36.0); Mean Corpuscular Hemoglobin 32.9 pg (27.0-31.0); Mean Corpuscular Volume 98.8 fl (78.0-98.0); Mean Platelet Volume 10.2 fL (7.4-10.4); Platelet Count 261 10x3/uL (130-400); RBC Distribution Width 12.6 % (11.5-14.5); White Blood Cell (WBC) Count 16.2 10x3/uL (4.8-10.8)
[2023-03-01 15:10] LABS: ALT (SGPT) 21 U/L (8-55); AST (SGOT) 22 U/L (5-34); Albumin 4.1 g/dL (3.4-4.8); Alkaline Phosphatase 79 U/L (40-110); Anion Gap 12 mmol/L (10-20); BUN (Urea Nitrogen) 15 mg/dL (8.4-25.7); Bilirubin, Total 0.5 mg/dL (0.2-1.2); Calc. Creatinine Clearance 0 mL/min (70-130); Carbon Dioxide 26 mmol/L (23-31); Chloride 101 mmol/L (98-107); Estimated GFR 95; Globulin 2.4 g/dL (2.4-3.5); Glucose 107 mg/dL (80-115); Potassium 4.3 mmol/L (3.5-5.1); Protein, Total 6.5 g/dL (5.8-8.1); Sodium 135 mmol/L (136-145)
[2023-03-01] MEDS ORDERED: Lorazepam 2 MG/ML VIAL SLOW IVP PRN (22:49)
[2023-03-01] MEDS ORDERED: Ondansetron ODT 4 MG TAB PO PRN (22:49)
[2023-03-01] MEDS ORDERED: Acetaminophen 325 MG TAB PO PRN (22:49)
[2023-03-01] MEDS ORDERED: Ondansetron PF 4 MG/2 ML Vial IVP PRN (22:49)
[2023-03-01] MEDS ORDERED: Acetaminophen 650 MG Suppository PR PRN (22:49)
[2023-03-01 23:32] VITALS: BMI 33.9
[2023-03-02 07:00] LABS: #Basophils 0.1 thou/uL (0.0-0.2); #Eosinphils 0.1 thou/uL (0.0-0.7); #Monocytes 1.2 thou/uL (0.11-0.59); #Neutrophils 6.8 thou/uL (1.40-6.50); %Basophils 0.5 % (0.0-1.0); %Eosinophils 1.3 % (0.0-10.0); %Lymphocytes 20.2 % (21.0-51.0); %Monocytes 11.8 % (0.0-10.0); %Neutrophils 65.7 % (42.0-75.0); Hematocrit 39.9 % (42.0-52.0); Hemoglobin 13.1 g/dL (14.0-18.0); Mean Corpuscular HGB CONC 32.8 g/dL (32.0-36.0); Mean Corpuscular Hemoglobin 32.5 pg (27.0-31.0); Mean Platelet Volume 9.9 fL (7.4-10.4); Platelet Count 257 10x3/uL (130-400); RBC Distribution Width 12.7 % (11.5-14.5); Red Blood Cell (RBC) Count 4.03 mill/uL (4.70-6.10); White Blood Cell (WBC) Count 10.3 10x3/uL (4.8-10.8)
[2023-03-02 07:01] VITALS: TEMP 98
[2023-03-02 07:17] LABS: Anion Gap 12 mmol/L (10-20); BUN (Urea Nitrogen) 13 mg/dL (8.4-25.7); Calc. Creatinine Clearance 125 mL/min (70-130); Calcium 8.8 mg/dL (7.8-10.44); Carbon Dioxide 26 mmol/L (23-31); Chloride 101 mmol/L (98-107); Estimated GFR 97; Glucose 96 mg/dL (80-115); Potassium 3.7 mmol/L (3.5-5.1); Sodium 135 mmol/L (136-145)
[2023-03-02] MEDS ORDERED: levETIRAcetam 500 MG/5 ML VIAL SLOW IVP SCH ×2 (09:00)
[2023-03-02] MEDS ORDERED: Lacosamide 50 mg Tablet PO SCH (09:00)
[2023-03-02 11:31] VITALS: BP 105/49
[2023-03-02] MEDS ORDERED: Atorvastatin Calcium 40 MG TAB PO SCH (21:00)
[2023-03-03] MEDS ORDERED: FLUoxetine HCl 20 MG CAP PO SCH (09:00)
[2023-03-03] MEDS ORDERED: Aspirin 81 mg Enteric Coated Tablet PO SCH (09:00)
== END 2023-03-02 12:24 | disposition home or self-care (01) ==
LOC: ERS 13:00 → ERHOLD 20:09
PROVIDERS: ADMIT Student in an Organized Health Care Education/Training Program; ATTEND Nurse Practitioner Acute Care
DX: G40.909 Epilepsy, unspecified, not intractable, without status epilepticus (principal); D72.829 Elevated white blood cell count, unspecified; E87.1 Hypo-osmolality and hyponatremia; E78.5 Hyperlipidemia, unspecified; Z79.82 Long term (current) use of aspirin; Z79.899 Other long term (current) drug therapy
CPT/HCPCS: 36415; 70496; 70498; 71045; 80048; 80053; 80307; 83735; 85025; 93005; 96365; 96376; G0378; J1953; Q9967